=== PATIENT | female | born 1965 | race African-American/Black ===

== ENCOUNTER 2019-07-05 04:49 | Day surgery (SDC) | payer OTHER ==
[2019-07-04 11:20] VITALS: BMI 27.8
--- NOTE | 2019-07-05 09:04 | HP ---
History & Physical Update - Physical Physical: No Change - Assessment Assessment: No Change - Plan Plan: No Change (H&P reviwed . no changes ,for hysteroscopy D&C , polypectomy)
[2019-07-05] MEDS ORDERED: DEXAMETHASONE SOD PHOSPHATE 4 MG/1 ML VIAL ONE (09:35)
[2019-07-05] MEDS ORDERED: MIDAZOLAM HCL 2 MG/2 ML SINGLE DOSE VIAL ONE (09:36)
[2019-07-05] MEDS ORDERED: PROPOFOL 20 ML ONE (09:36)
[2019-07-05] MEDS ORDERED: IBUPROFEN 800 MG/8 ML IJ IVPB PRN (10:53)
[2019-07-05] MEDS ORDERED: ONDANSETRON 4 MG/2 ML VIAL IVPUSH PRN (10:53)
[2019-07-05] MEDS ORDERED: oxyCODONE HCL 5 MG TABLET PO PRN (10:53)
[2019-07-05] MEDS ORDERED: IBUPROFEN 600 MG TABLET (FP) PO PRN (10:53)
--- NOTE | 2019-07-05 10:57 | OP ---
Operative Note - Note: Operative Date: 07/05/19 Pre-Operative Diagnosis: PMB, fibroid uterus, EM polyp Operation: hyst, EM polypectomy, D&C Findings: enlarged uterus 14 weeks, with 2 submucos myoma aned 2 EM polyp. EM irregular Surgeon: Lawrence Chávez Specimens Removed: EM polyp. EMC Estimated Blood Loss (mls): 50 Drains & Tubes with Location: none Blood Volume Replaced (mls): 0 Operative Report Dictated: Yes
[2019-07-05] MEDS ORDERED: ELECTROLYTE-148 SOLN 1,000 ML IV SCH (11:00)
[2019-07-05 15:18] VITALS: BP 135/80; PULSE 68; TEMP 97.9
--- NOTE | 2019-07-05 16:54 | OP ---
DATE OF OPERATION: 07/05/2019 PREOPERATIVE DIAGNOSIS: Postmenopausal bleeding, endometrial polyp, and fibroid uterus. POSTOPERATIVE DIAGNOSIS: Postmenopausal bleeding, endometrial polyp, and fibroid uterus. PROCEDURE: Hysterectomy, dilation and curettage, and endometrial polypectomy. SURGEON: Lawrence Chávez MD. ANESTHESIA: General. ESTIMATED BLOOD LOSS: 50 mL. FINDINGS: Two submucosal myoma with 2 endometrial polyps, and enlarged uterus. OPERATION: Patient was taken to operating room, had adequate general anesthesia, examination under anesthesia revealed external genitalia to be normal. Vagina was normal, cervix was clean, no lesion. Uterus was enlarged approximately 14 weeks' size, anteverted, irregular. Adnexa, no masses were palpable. Then, with a weighted speculum in the vagina, anterior lip of the cervix was grasped with a single-toothed tenaculum. The cervix was slightly dilated with Hegar dilator. Uterine cavity was sounded to 14 cm. Then hysteroscope was introduced into the uterine cavity. Endocervical canal appeared to be normal. There were 2 submucosal myoma, 1 on the posterior wall and 1 on the anterior wall, and then there were 2 small endometrial polyps noted in the mid portion of the uterus. Both ostia were identified. Endometrium appeared to be regular. Then endometrial polyp was identified and removed. Both polyps were removed. The submucous myomas were mostly in the wall of the uterus with a small projection into the endometrium, so therefore attempt was not made to remove the fibroid because of the depth into the myometrium, and then the endometrium was curetted in yarn inspector fashion. Small amount of tissue was obtained. Patient tolerated procedure well, left the OR in good condition. LAWRENCE CHÁVEZ M.D. [id number]
--- NOTE | 2019-07-06 18:40 | PATH ---
Surgical Pathology Report Patient Name: MARY VEGA [facility]. Rec. #: [id number] /Age/Gender: 1965 (Age: 53) / F Account: [id number] Location: [facility] SURGICAL Taken: 07/05/2019 Received: 07/05/2019 Reported: 07/06/2019 Physicians: Lawrence Chávez M.D. Specimen(s) Received A: ENDOMETRIAL POLYP B: ENDOMETRIAL CURETTINGS Clinical History Uterine fibroids, endometrium thickened, pelvic pain Final Diagnosis A. ENDOMETRIAL POLYP, POLYPECTOMY: POLYPOID FRAGMENTS OF ENDOMETRIUM WITH CHRONIC ENDOMETRITIS, SUPERFICIAL MYOMETRIUM, AND BENIGN CERVICAL TISSUE. B. ENDOMETRIAL CURETTINGS, DILATION AND CURETTAGE: POLYPOID FRAGMENTS OF ENDOMETRIUM WITH CHRONIC ENDOMETRITIS AND FOCAL STROMAL BREAKDOWN, SUPERFICIAL MYOMETRIUM, AND SCANT BENIGN ENDOCERVICAL TISSUE. Electronically Signed Fernanda Cuevas M.D. Gross Description A. Received in formalin labeled "endometrial polyp" are multiple irregular fragments of pink-hartman and hemorrhagic soft tissue measuring 3 x 3 x 0.5 cm. Entire specimen is submitted in one cassette. B. Received in formalin labeled "endometrial curettings" are multiple irregular fragments of pink-hartman and hemorrhagic soft tissue measuring 2 x 2 x 0.4 cm. Entire specimen is submitted in one cassette. MLSZ/07/05/2019 sanml/07/05/2019
== END 2019-07-05 14:30 | disposition home or self-care (01) ==
LOC: JASU-SURG 04:49
PROVIDERS: ATTEND Obstetrics & Gynecology
PROC: 0UJD8ZZ Inspection of Uterus and Cervix, Via Natural or Artificial Opening Endoscopic (ICD-10-PCS; 2019-07-05)
PROC: 0UB97ZX Excision of Uterus, Via Natural or Artificial Opening, Diagnostic (ICD-10-PCS; principal; 2019-07-05 10:00)
PROC: 0UDB7ZX Extraction of Endometrium, Via Natural or Artificial Opening, Diagnostic (ICD-10-PCS; 2019-07-05 10:00)
DX: N95.0 Postmenopausal bleeding (principal); N84.0 Polyp of corpus uteri; D25.9 Leiomyoma of uterus, unspecified
CPT/HCPCS: 36415; 71046-TC-FY; 80053; 84702; 84703; 85025; 85610; 85730; 88305-TC; 93005; 93010; 94760